=== PATIENT | male | born 1950 | race Caucasian/White ===

== ENCOUNTER 2016-10-28 20:48 | Inpatient (IN) | payer MEDICARE ==
[~2016-10-28] VITALS: Ht 185.4 cm; Wt 100.2 kg
--- NOTE | 2016-10-29 19:08 | ER ---
ADMIT: 10/28/2016 RM/LOC: 403 [facility] MR#: [id number] [address] [address] RICKLYLE CASILLASSURAJ Turner [address] [place] [address] Emergency Room Report SEX: M AGE: 66 : 1950 DATE: 10/28/2016 HISTORY OF PRESENT ILLNESS: The patient is a 66-year-old male, came here with chief complaint of multiple falls during the day for the last few days. The patient states he uses alcohol frequently and for the last few days in the last week, he had 1 to 4 times of falling during the day. The patient states falling mostly happens if he is sitting from the lying position or if he is standing from the sitting position and he states that he feels dizzy after that and he falls, but denies any loss of consciousness. The patient also states that today he fell multiple times. The patient generally in the last few days felt weak and dizzy. The patient denies any vertigo or hearing problem. PAST MEDICAL HISTORY: The patient states he has a past medical history of myocardial infarction, hypertension, and CVA and per chart, the patient has a history of cardiac bypass and left carotid endarterectomy. PHYSICAL EXAMINATION: VITAL SIGNS: In the ER, the patient had blood pressure of 105/79, heart rate was 67, respiratory rate was 18, and the patient was afebrile. GENERAL: The patient did not look to be in pain or distress. The patient was alert and oriented. HEENT: There were mild abrasions on the nasal bridge without septal hematoma or raccoon eyes or Lara sign. NECK: The patient had no midline tenderness. No bruit. LUNGS: Clear bilaterally. HEART: Normal heart sounds without any murmurs. The patient had left anterolateral chest tenderness without crepitation. The patient states after the fall today, he felt more pain which was moderate to severe on the left anterior chest. The pain increases with deep inspiration. ABDOMEN: Soft. PELVIC: Stable. EXTREMITIES: The patient had normal range of motion. The patient has some abrasions in anterior bilateral knees, more on the left side. Neurovascularly, the patient was intact. The patient was positive for orthostatic vitals. LABORATORY DATA AND IMAGING: CT of the head was negative for any acute changes or bleeding. The patient had WBC of 9.5, and hemoglobin of 11.2, with platelet of 241. EKG showed normal sinus rhythm with a rate of 60, and ADMIT: 10/28/2016 RM/LOC: 403 [facility] MR#: [id number] [address] [address] TIMBO CABRERA [address] [place] [address] Emergency Room Report SEX: M AGE: 66 : 1950 prolonged SC to 259 milliseconds. Cardiac enzyme, troponin I was negative. Ethanol level was 222. INR was 1.0. The patient had sodium of 121, with glucose of 156, and potassium was 2.9. Creatinine was also elevated to 1.6, from previous 0.8. EMERGENCY ROOM COURSE: The patient was started on IV fluids and received 1 L of normal saline bolus, the patient received magnesium sulfate 2 g, and also 60 mEq of K-Dur p.o. The patient also was started on banana bag (multivitamin, thiamine 100 mg, and folate 1 mg). Medicine was consulted and the patient was admitted for syncope, hyponatremia, hypokalemia, acute kidney injuries, for further followups and treatments. Dennis Herrera MD/ kali JOB #: [id number] CC: Raúl Olson MD, Attending Physician Raúl Olson MD, Family Physician
[2016-11-01] MEDS ORDERED: PLAVIX75 MG PO (15:37)
[2016-11-01] MEDS ORDERED: MOTRIN-DPS600 MG PO (15:37)
[2016-11-01] MEDS ORDERED: ZOCOR DPS40 MG PO (15:37)
[2016-11-01] MEDS ORDERED: THERAPEUTIC MUL1 TAB PO (15:38)
[2016-11-01] MEDS ORDERED: HYDROCODON-ACE1 EAC4 PO (15:38)
[2016-11-01] MEDS ORDERED: AMBIEN DPS10 MG PO (15:38)
[2016-11-01] MEDS ORDERED: FEOSOL-DPS325 MG PO (15:38)
--- NOTE | 2016-11-05 08:19 | HP ---
ADMIT: 10/28/2016 RM/LOC: 403 [facility] MR#: [id number] [address] [address] TIMBO CABRERA Yue [address] [place] [address] History and Physical SEX: M AGE: 66 : 1950 DATE OF SERVICE: CHIEF COMPLAINT: Syncopal episode with fall at home. HISTORY OF PRESENT ILLNESS: The patient is a 66-year-old white male who lives alone at home. He states that he has had problems with dizzy spells over the past several weeks. These dizzy spells have been worsening. Yesterday, he states that he drank 3 large glasses of vodka and lemonade. Became dizzy when he stood up and then fell. He was brought into the emergency room for evaluation. Chest x-ray showed that he has a fractured left 9th rib. Upon further questioning, the patient states that he has been noticing increased dizziness over the last several weeks, but it has gradually been worsening. He claims that he drinks plenty of water. Does admit to somewhat regular alcohol use as well. He has a history of coronary artery disease and is on numerous medications for his heart and blood pressure. He states that he is taking them faithfully. Denies any chest pain or palpitations. No fevers or chills noted. He does live alone. CT scan of his head was done at time of admission and was negative. Further evaluation in the emergency room showed that he had a low potassium level, low sodium level, and that he did have orthostatic hypotension. He is admitted for further evaluation and treatment. ALLERGIES: NO KNOWN MEDICAL ALLERGIES. PAST MEDICAL HISTORY: The patient has a history of coronary artery disease and had a previous 3-vessel bypass in 2006; hypertension; previous stroke in 2012, without any residual deficit; history of tobacco abuse; hypercholesterolemia. MEDICATIONS: Current med list from home includes; 1. Simvastatin 40 mg daily. 2. Plavix 75 mg daily. 3. Coreg 25 mg daily. 4. Lisinopril and hydrochlorothiazide 20/25 mg, 2 tablets daily. 5. Amlodipine 10 mg daily. PAST SURGICAL HISTORY: The patient has had previous left rotator cuff repair, previous left endarterectomy to clear his left carotid artery in February 2013, previous 3-vessel coronary artery bypass grafting done in 2006. SOCIAL HISTORY: The patient lives alone and has disability, and therefore, is not employed. He is from his , but not formally . He admits to regular tobacco use. He smokes 1 pack per day and has smoked since age 22. He did quit for a short time in 2012, following a stroke, but has since resumed smoking regularly. He denies drug use. Alcohol use on a regular basis. He states that he drinks vodka with lemonade. On most days, he does drink 2 to 3 large glasses of vodka and lemonade. FAMILY HISTORY: There is a heart disease in his mother and father's side. Diabetes in his father. There is some cancer on his mother's side of the ADMIT: 10/28/2016 RM/LOC: 403 [facility] MR#: [id number] [address] [place] [id number] TIMBO CABRERA [address] [place] [address] History and Physical SEX: M AGE: 66 : 1950 family. The patient recently had a brother of prostate cancer at age 61. REVIEW OF SYSTEMS: GENERAL: The patient has had recurrent episodes of dizziness, which have worsened over the past few weeks. Also, has some generalized fatigue. Denies fevers, chills, or appetite changes. SKIN: Denies any rashes, bruising, or easy bleeding. HEENT: No headaches or vertigo symptoms, but he does have some dizziness. No sore throat, sinus symptoms, or difficulty swallowing. NECK: No stiffness or swollen glands. No history of neck problems. RESPIRATORY: Denies shortness of breath, wheezing, cough, hemoptysis, or shortness of breath. CARDIOVASCULAR: History of hypertension and coronary artery disease. Denies chest pains or palpitations. No swelling in the hands or feet. GASTROINTESTINAL: Denies abdominal pain, nausea, vomiting, diarrhea, or constipation. GENITOURINARY: No dysuria, hematuria, urinary frequency, prior prostate or kidney problems. MUSCULOSKELETAL: He has had some significant pain in his left rib cage since his fall yesterday. Denies any other unusual muscle or joint pains. NEUROLOGIC: He has had some dizziness and fainting, which have occurred more frequently over the past several weeks. Did have a stroke in January 2013, but did not have any residual weakness or deficits from the stroke. ENDOCRINE: He does have a history of diabetes, which was diagnosed in 2014 with a hemoglobin A1c of 10.2. He has not been on medications. No history of thyroid problems. HEMATOLOGIC: No abnormal bleeding or blood clot history. PHYSICAL EXAMINATION: VITAL SIGNS: Most recent vitals include a temperature of 96.6, pulse 68 and regular, respiratory rate 18, blood pressure 103/62, and O2 saturations 91% on room air. GENERAL: The patient is alert and oriented. He answers questions appropriately. He is in moderate distress because of his fractured left 9th rib. HEENT: Ears clear bilaterally. Pupils are equal, round, and reactive to light and accommodation bilaterally. Throat is clear and moist. NECK: Supple without lymphadenopathy or JVD. No thyroid enlargement or tenderness. LUNGS: Clear bilaterally without wheezes, rhonchi, or rales. He does have significant tenderness in the left lateral rib cage at the site of his left 9th rib fracture. No outward bruising or swelling noted. HEART: Regular rate and rhythm without murmur, rub, or gallop. ABDOMEN: Soft, nontender, and nondistended. No masses palpated. EXTREMITIES: With functional range of motion and normal strength. No clubbing, cyanosis, or edema. NEUROLOGIC: No focal deficits. ASSESSMENT: 1. Recent syncopal event (worsening dizziness over the past few weeks). ADMIT: 10/28/2016 RM/LOC: 403 [facility] MR#: [id number] 26[address] [facility] [address] [place], [place] [address] TIMBO CABRERA [address] [place] [address] History and Physical SEX: M AGE: 66 : 1950 2. History of alcohol abuse. 3. Tobacco abuse. 4. Hypokalemia. 5. Hyponatremia. 6. Renal insufficiency. 7. Left 9th rib fracture. 8. Orthostatic hypotension. 9. Diabetes mellitus, type 2 (hemoglobin A1c is 7.5). LABORATORY AND X-RAY DATA: Admission labs included a CBC with normal white count of 9.5, hemoglobin 11.2, and platelet count 241. Sodium low at 121, potassium low at 2.9, BUN 12, creatinine mildly elevated at 1.6, glucose 156, alkaline phosphatase 69, AST 12, ALT 17, and magnesium 2.2. Troponin I is less than 0.015. Ethanol level was 222 at the time of admission. CT scan of the head done at the time of admission showed no acute intracranial abnormality. INR is less than 1.00. Chest x-ray done at the time of admission showed a left 9th rib fracture, but no pneumothorax or pneumonia. Repeat labs done on the morning of 10/29 shows a normal white blood cell count of 8.5, hemoglobin low at 10.5, and platelet count 273. Sodium improved to 124, potassium improved to 3.4, BUN 12, creatinine 1.3, glucose 117, and magnesium 2.7. Creatine kinase 78, MB 1.0, relative index 1.3, and troponin I less than 0.015. Hemoglobin A1c is 7.5. Second set of cardiac enzymes are normal with creatine kinase of 66, MB 0.6, relative index 0.9, and troponin I less than 0.015. EKG at the time of admission showed normal sinus rhythm. PLAN: The patient has been admitted for pain management. We will have PT and OT see this patient and we will attempt to control his pain from his left 9th rib fracture. We will watch for alcohol withdrawal symptoms and we will follow the alcohol withdrawal protocol. We will hydrate with IV fluids and replace his potassium and sodium. We will hold his blood pressure medications for now as he is a little hypotensive. We will place him on a diabetic diet and give diabetic education while he is here. Raúl Olson MD/ kali JOB #: [id number] CC: Raúl Olson, Attending Physician Raúl Olson, Family Physician
--- NOTE | 2016-12-23 19:06 | DS ---
ADMIT: 10/28/2016 RM/LOC: 403 [facility] MR#: [id number] [address] [address] RICKTIMBO [address] [place] [address] General Discharge Summary SEX: M AGE: 66 : 1950 ADMISSION DATE: 10/28/2016 DISCHARGE DATE: 10/31/2016 PRIMARY DIAGNOSES: 1. Syncopal episode. 2. Orthostatic hypotension. 3. Left 9th rib fracture. 4. Iron-deficiency anemia. 5. Alcohol abuse. 6. Tobacco abuse. 7. History of coronary artery disease. 8. Hypokalemia. 9. Hyponatremia. 10.Renal insufficiency. 11.Diabetes mellitus type 2 (hemoglobin A1c 7.5) during this hospitalization. HISTORY OF PRESENT ILLNESS: The patient is a 66-year-old white male, who lives alone at home. He states that he had been having problems with dizzy spells over a period of several weeks. The dizzy spells had been worsening. On the day prior to admission, he states that he drank 3 large glasses of vodka and lemonade. He became dizzy when he stood up and then fell. He came into the emergency room for evaluation and it was discovered that he had a fractured left 9th rib. The patient notes that he had become increasingly dizzy over the past several weeks and it has generally occurred with postural changes such as sitting to standing. He does claim that he drinks plenty of water, but also admits to somewhat regular alcohol use. He has a prior history of coronary artery disease and is on numerous medications for his heart and blood pressure. He claims that he is taking his medications faithfully. Denies chest pains or palpitations. No fevers or chills noted. He does live alone at home. At time of admission, a CT scan of his head was done and was negative/normal. Further evaluation through the emergency room, showed that he had a low potassium level, low sodium level, and that he did have some orthostatic hypotension. The patient was admitted for further evaluation of his syncopal event and treatment of his electrolyte abnormalities. LABORATORY AND X-RAY: Admission labs through the emergency room included a CBC with normal white blood cell count of 9.5, hemoglobin of 11.2, platelet count of 241. Sodium was low at 121, potassium low at 2.9, BUN 12, creatinine mildly elevated at 1.6, glucose 156, alkaline phosphatase 69, AST 12, ALT 17, magnesium 2.2. Troponin was less than 0.015. Ethanol level was 222 at time of admission[address] scan done at time of admission, showed no acute intracranial abnormality. INR was less than 1.0. Chest x-ray at time of admission, showed a left 9th rib fracture, but no pneumothorax or pneumonia. A hemoglobin A1c at time of admission was 7.5. Cardiac enzymes which were repeated for two sets were negative/normal. EKG at time of admission showed normal sinus rhythm. Additional pertinent labs and x-ray; chest x-ray prior to discharge on 10/31, showed some probable right lower lobe atelectasis. Vitamin B12 ADMIT: 10/28/2016 RM/LOC: 403 [facility] MR#: [id number] [address] [place] [phone] TIMBO CABRERA [address] [place] [address] General Discharge Summary SEX: M AGE: 66 : 1950 level was normal at 430. Folate level normal at 15.0. Iron level was found to be low at 17. Prior to discharge, his sodium had improved to 132, potassium normal at 4.0, BUN 13, creatinine 1.1, glucose 103. White blood cell count was 9.5 prior to discharge, hemoglobin 10.2, platelet count 294. HOSPITAL COURSE: The patient was admitted on 10/28/2016 with primary diagnosis of syncopal episode at home and several weeks of dizziness. It was discovered that the patient did have some orthostatic hypotension. He was started on IV fluids. PT and OT were asked to evaluate and treat because of his weakness and dizziness. He was also placed on alcohol withdrawal protocol as his alcohol level was 222 when he came in, and he admitted to regular alcohol use at home. Cardiac enzymes were done and were negative/normal. Transdermal nicotine patch was placed due to his smoking history. Ultram was given as needed for his left 9th rib fracture pain. All blood pressure medications were held due to low blood pressure and orthostatic hypotension. Potassium was added to his IV fluid to replace his low potassium level. Pain management was adjusted by adding hydrocodone and ibuprofen on a regular basis for his pain. Hemoglobin A1c was done and was found to be 7.5. Diabetic education and diabetic diet were ordered. Throughout the hospitalization, the patient did improve. His orthostatic hypotension and dizziness did improve as we held his blood pressure medications. His left rib cage pain improved a little bit as well. Because of his anemia, a workup was done which did show a significantly low iron level of 17. Iron was initiated during the hospitalization. By 10/31/2016, the patient was doing quite well but was very grumpy and desiring to go home. He was not sleeping well in the hospital because of frequent nursing checks and vitals as well as blood draws. He felt that he was stable enough to go home on 10/31/2016 and strongly desired to leave the hospital. He was therefore sent home in very stable condition on 10/31/2016. DISCHARGE INSTRUCTIONS: The patient was discharged to home on 10/31/2016. MEDICATIONS AT TIME OF DISCHARGE: Included: 1. Motrin 600 mg every 6 hours scheduled. ADMIT: 10/28/2016 RM/LOC: 403 [facility] MR#: [id number] [address] [address] TIMBO CABRERA [address] [place] [address] General Discharge Summary SEX: M AGE: 66 : 1950 2. Plavix 75 mg daily. 3. Multivitamin once daily. 4. Zocor 40 mg daily. 5. Hydrocodone 5/325 mg 1-2 tabs every 6 hours as needed. 6. Iron 325 mg 3 times daily for anemia. 7. Ambien 10 mg at bedtime for sleep. He was given a prescription for a wheeled walker for home use. He was to remain on a diabetic diet at home and follow up with Dr. Olson in 5-7 days. His regular home blood pressure medications including amlodipine 10 mg, lisinopril HCT 20/25 mg, and Coreg 25 mg, were all held because of his hypotension and dizziness. We will discuss resumption of these medications at his followup appointment in 5-[address] Olson. Raúl Olson MD/ kali JOB #: [id number] CC: Raúl Olson MD, Attending Physician Raúl Olson MD, Family Physician
== END 2016-10-31 12:03 | disposition home or self-care (01) | DRG 312 ==
LOC: ER 20:48 → 4PCU 22:47
PROVIDERS: ADMIT Family Medicine
PROC: HZ2ZZZZ Detoxification Services for Substance Abuse Treatment (ICD-10-PCS; principal; 2016-10-29)
DX: I95.1 Orthostatic hypotension (principal); N17.9 Acute kidney failure, unspecified; E87.1 Hypo-osmolality and hyponatremia; I10 Essential (primary) hypertension; D50.9 Iron deficiency anemia, unspecified; E11.9 Type 2 diabetes mellitus without complications; S22.32XA Fracture of one rib, left side, initial encounter for closed fracture; E87.6 Hypokalemia; S00.31XA Abrasion of nose, initial encounter; W19.XXXA Unspecified fall, initial encounter; S80.212A Abrasion, left knee, initial encounter; S80.211A Abrasion, right knee, initial encounter; I25.10 Atherosclerotic heart disease of native coronary artery without angina pectoris; E78.00 Pure hypercholesterolemia, unspecified; F17.210 Nicotine dependence, cigarettes, uncomplicated; F10.10 Alcohol abuse, uncomplicated; N28.9 Disorder of kidney and ureter, unspecified; Y90.7 Blood alcohol level of 200-239 mg/100 ml; I25.2 Old myocardial infarction; Z79.02 Long term (current) use of antithrombotics/antiplatelets; Z86.73 Personal history of transient ischemic attack (TIA), and cerebral infarction without residual deficits; Z95.1 Presence of aortocoronary bypass graft